=== PATIENT | male | born 1970 | race Caucasian/White ===

== ENCOUNTER 2021-03-30 11:09 | Emergency (ER) | payer MEDICAID ==
[~2021-03-30] VITALS: Ht 172.7 cm; Wt 95.3 kg
--- NOTE | 2021-03-30 11:09 | NUR ---
Note tianna in ED - 03/30/21 at 1126 by VAMSHI PT BIBRA 89 C/O BIZARRE BEHAVIOR "WE FOUND HIM IN A APARTMENT COMPLEX WONDERING AROUND" PT IS AAOX1. NOT IN RESPIRATORY DISTRESS, V/S STABLE, KEPT RESTED AND COMFORTABLE. WILL CONTINUE TO MONITOR.
--- NOTE | 2021-03-30 11:10 | NUR ---
PT BIBRA 89 C/O BIZARRE BEHAVIOR "WE FOUND HIM IN A APARTMENT COMPLEX WANDERING AROUND" PT IS AAOX1. NOT IN RESPIRATORY DISTRESS, V/S STABLE, KEPT RESTED AND COMFORTABLE. WILL CONTINUE TO MONITOR.
--- NOTE | 2021-03-30 11:25 | NUR ---
SEEN AND EXAMINED BY .
[2021-03-30 11:36] LABS: BASOPHILS # (AUTO) 0.1 /CMM (0.0-0.2); BASOPHILS % (AUTO) 0.8 % (0.0-2.0); EOSINOPHILS % (AUTO) 0.3 % (0.0-6.0); HEMATOCRIT 48 % (39-51); HEMOGLOBIN 16.5 g/dL (13.5-17.5); LYMPHOCYTES # (AUTO) 1.7 /CMM (0.8-4.8); LYMPHOCYTES % (AUTO) 17.9 % (20.0-44.0); MEAN CORPUSCULAR HGB CONC 34 g/dl (31.0-36.0); MEAN CORPUSCULAR VOLUME 92 fL (80-96); MONOCYTES # (AUTO) 0.5 /CMM (0.1-1.30); MONOCYTES % (AUTO) 4.9 % (2.0-12.0); NEUTROPHILS # (AUTO) 7.1 /CMM (1.8-8.9); NEUTROPHILS % (AUTO) 76.1 % (43.0-81.0); PLATELET COUNT (AUTO) 355 /CMM (150-450); RED BLOOD CELL COUNT(AUTO) 5.24 MIL/uL (4.5-6.0); WHITE BLOOD COUNT (AUTO) 9.3 K/uL (4.3-11.0)
[2021-03-30 11:59] LABS: ACETAMINOPHEN < 2 ug/ml (10-30); ALANINE AMINOTRANSFERASE 48 U/L (12-78); ALBUMIN 4.5 g/dL (3.4-5.0); ALCOHOL, BLOOD 253 mg/dL (0-0); ALKALINE PHOSPHATASE 99 U/L (46-116); ASPARTATE AMINOTRANSFERASE 87 U/L (15-37); BILIRUBIN,DIRECT 0.3 mg/dL (0.0-0.2); CALCIUM, SERUM 8.6 mg/dL (8.5-10.1); CARBON DIOXIDE 24 mmol/L (21-32); CHLORIDE 96 mmol/L (98-107); CREATININE 1.2 mg/dL (0.6-1.3); GLUCOSE 108 mg/dL (74-106); POTASSIUM 3.4 mmol/L (3.5-5.1); SODIUM SERUM 138 mmol/L (136-145); TOTAL PROTEIN, SERUM 8.3 g/dL (6.4-8.2); UREA NITROGEN, BLOOD 8 mg/dL (7-18)
[2021-03-30 13:03] LABS: BILIRUBIN,URINE Negative (NEGATIVE); COLOR,URINE YELLOW (YELLOW); LEUKOCYTE ESTERASE ,URINE Negative (NEGATIVE); NITRITE, URINE Negative (NEGATIVE); PH,URINE 5.5 (5.0-8.0); PROTEIN,URINE >=300 mg/dl (NEGATIVE); UGLUCOSE Negative (NEGATIVE); UROBILINOGEN,URINE 0.2 EU/dL (0.2)
[2021-03-30 13:07] LABS: BACTERIA,URINE Rare /HPF (None Seen); RBC,URINE 21-50 /HPF (0-2); SQUAMOUS EPITHELIAL CELL,UR Few /HPF (None Seen); WBC,URINE NONE SEEN /HPF (0-3)
--- NOTE | 2021-03-30 20:52 | NUR ---
PT AWAKE. AAOX4. AMBULATORY WITH STEADY GAIT. DENIES SI/HI AT THIS TIME.
--- NOTE | 2021-03-30 21:10 | NUR ---
PT DENIES SI AND HI. AMBULATING TO THE RESTROOM, REQUESTING TO LEAVE.
--- NOTE | 2021-03-30 21:12 | NUR ---
PT AAOX4. REQUESTING TO LEAVE. ER MD AWARE. PT DISCHARGED. AMBULATED WITH STEADY GAIT.
[2021-03-30 21:13] VITALS: BP 135/72
== END 2021-03-30 21:14 | disposition home or self-care (01) ==
LOC: ER 11:11 → EDBD 11:11 → ER 21:14
DX: F29 Unspecified psychosis not due to a substance or known physiological condition (principal)
CPT/HCPCS: 36415; 80048-TC; 80076-TC; 81001; 85025-TC; G0480

== ENCOUNTER 2021-07-02 03:06 | Emergency (ER) | payer MEDICAID ==
[~2021-07-02] VITALS: Ht 172.7 cm; Wt 95.3 kg
--- NOTE | 2021-07-02 03:20 | NUR ---
PT WAS BROUGHT IN VIA AMBULANCE FROM HOME FOR ETOH. PT WAS PLACED IN ER IN BED 14. PT IS AWAKE, MUMBLING WORDS. UNABLE TO OBTAIN DETAILED INFO FROM PT. PT WAS PLACED ON MOTHER HELPER AND PLACED ON CLOSE SUPERVISION. PT HAS NO DISTRESS, BREATHING EVEN AND UNLABORED. VITAL SIGNS STABLE. WILL CONTINUE TO MONITOR.
--- NOTE | 2021-07-02 06:42 | NUR ---
Patient discharged to home in stable condition. Written and verbal after care instructions given. Patient verbalizes understanding of instruction.
[2021-07-02 06:43] VITALS: BP 149/79
== END 2021-07-02 06:43 | disposition home or self-care (01) ==
LOC: ER 03:08
DX: S09.8XXA Other specified injuries of head, initial encounter (principal); F10.129 Alcohol abuse with intoxication, unspecified; R45.1 Restlessness and agitation; R51.9 Headache, unspecified; Y90.9 Presence of alcohol in blood, level not specified; X58.XXXA Exposure to other specified factors, initial encounter; Y93.89 Activity, other specified; Y92.89 Other specified places as the place of occurrence of the external cause; Y99.8 Other external cause status
CPT/HCPCS: 70450-TC; 72125-TC